=== PATIENT | female | born 1950 | race Caucasian/White ===

== ENCOUNTER 2017-04-23 12:39 | Day surgery (SDC) | payer MEDICARE, OTHER ==
[~2017-04-23] VITALS: Ht 154.9 cm; Wt 74.8 kg
[~2017-04-23 12:39] MED LIST: AMLODIPINE BESYL5 MG PO; ASPIRIN EC81 MG PO; ATENOLOL25 MG PO; ATORVASTATIN CA10 MG PO; CALCIUM + VITA1 EACH PO; GLUCOSAMINE &1 EAC1 PO; IBUPROFEN200 M1 PO; LOSARTAN POTAS100 MG PO; MULTIVITAMINS1 EAC7 PO; NORCO 5-325 TA1 EACH PO; OMEGA 3 1,0001 EACH PO
[2017-04-23] MEDS ORDERED: METOPROLOL SUCC50 MG PO (13:04)
[2017-04-23] MEDS ORDERED: VITAMIN D2000 UNI1 PO (13:05)
[2017-04-23] MEDS ORDERED: CO Q-10300 MG PO (13:06)
[2017-04-23] MEDS ORDERED: FLAXSEED OIL1000 M1 PO (13:06)
[2017-04-23] MEDS ORDERED: FERROUS SU220 MG/52 PO (13:07)
[2017-04-23] MEDS ORDERED: VITAMIN C250 MG PO (13:07)
--- NOTE | 2017-04-23 14:18 | NUR ---
04/23/17 1418 Iwona Ellis ARRIVED IN PACU SLEEPY.
--- NOTE | 2017-04-24 13:23 | OR ---
[facility] [address] [place], [place] [address] Signed DATE OF OPERATION: 04/23/2017 SURGEON: Kacey Winters MD PREOPERATIVE DIAGNOSES: 1. Solid-food dysphagia. No ongoing reflux treatment. 2. Hiatal hernia on upper GI study with irregular distal esophageal mucosa. POSTOPERATIVE DIAGNOSES: 1. Poor esophageal flap valve consistent with hiatal hernia with hypertrophic-appearing distal esophageal mucosa, no evidence of Figueroa's or neoplasm. 2. Pre-pyloric ulcers x2 (8 mm in size). PROCEDURE: Esophagogastroduodenoscopy with biopsy. ANESTHESIA: Intravenous sedation, fentanyl 100 mcg, Versed 3 mg. INDICATION: This is a 67-year-old white woman, who is a patient of MANAV Nuñez; previously Dr. Yves Matta, now retired. She has had several years of increasing dysphagia, now primarily to solid foods. An upper GI has been performed in the past confirming a hiatal hernia as well as some irregular mucosa of the distal esophagus. On the basis of her symptoms, I have recommended upper endoscopy. The patient has declined specific therapy for this including PPI medication until "something is known for sure." She understands the risks of bleeding, infection, and perforation related to upper endoscopy and wished to proceed with it. FINDINGS: Not expected, but nevertheless found were 2 pre-pyloric ulcers. They were with a rose white basin with no sign of active bleeding. Both were about 8 mm in size. Duodenum was normal. The antrum looked reasonably normal otherwise. FABRIZIO test was negative 15 minutes post procedure. Retroflexed view confirmed a poor flap valve consistent with hiatal hernia. Distal esophageal mucosa showed no sign of Figueroa's epithelium and otherwise hypertrophic mucosa on the gastric side of the GE junction Z-line. DESCRIPTION OF PROCEDURE: The patient was brought to the endoscopy suite and placed in lateral decubitus position after undergoing topical Hurricaine spray hypopharyngeal anesthesia. She was given Electronically Signed By: KACEY WINTERS MD 04/24/17 1323 PATIENT NAME: ANA WHEATLEY OPERATIVE REPORT DATE OF : 50 PHYSICIAN: KACEY WINTERS MD REPORT #: [id number] REPORT IS CONFIDENTIAL AND NOT TO BE RELEASED WITHOUT AUTHORIZATION [facility] [address] [place], [place] [address] Signed intravenous sedation to the point of slurred speech and nystagmus with full cardiopulmonary monitoring. A bite block was placed. An Olympus video upper endoscope was passed in the hypopharynx. Hypopharyngeal soft tissue is somewhat edematous, but not severely so. Vocal cords appeared normal, though only briefly encountered. The scope was advanced to the esophagus. Throughout its length, it appeared normal including the distal portion where there was no evidence of Figueroa's epithelium, stricture, or neoplasm. Scope was advanced to the stomach which was insufflated with air. Excess gastric juices suctioned free. There was no sign of bile. Rugal folds were normal as was the antral motility. The antrum appeared reasonably normal, except for the prepyloric area. There were 2 less than 1 cm small ulcers with rose white base. The scope was passed into the normal-appearing pylorus into the duodenum, which was normal and biopsied. The scope was withdrawn and a direct biopsy of the pre-pyloric dominant ulcer was undertaken. There was no untoward bleeding. Biopsies were taken of the antrum for both FABRIZIO and pathologic testing. Retroflexed view was undertaken, confirming a poor flap valve consistent with small hiatal hernia. There was no sign of neoplasm. The scope was straightened, withdrawn, and narrow band imaging was used to evaluate the esophageal mucosa. The distal portion showed a somewhat hypertrophic or hyperplastic area, but not ulcerated and not neoplastic proper. The distal esophageal mucosa was biopsied. The scope was further withdrawn and biopsy was taken of the midesophagus to assess 1st eosinophilic esophagitis. The scope was carefully withdrawn, removed, and the patient was then taken to recovery in good condition. CONCLUDING DIAGNOSES: 1. Dysphagia of uncertain etiology. No obvious stricture, but definitely reflux. 2. Pre-pyloric ulceration unexpected. PLAN: Recommend Prilosec 20 mg p.o. daily, minimum 3 months and short term treatment Carafate 1 g p.o. q.i.d. on empty stomach x2 weeks. She will return to see us in approximately 4 to 6 weeks. MD GABRIELE Leger/MODL /[id number] Electronically Signed By: KACEY WINTERS MD 04/24/17 1323 PATIENT NAME: ANA WHEATLEY OPERATIVE REPORT DATE OF : 50 PHYSICIAN: KACEY WINTERS MD REPORT #: [id number] REPORT IS CONFIDENTIAL AND NOT TO BE RELEASED WITHOUT AUTHORIZATION [address] [address] Signed cc: MD Nell Joaquin PA-C Electronically Signed By: KACEY WINTERS MD 04/24/17 1323 PATIENT NAME: ANA WHEATLEY OPERATIVE REPORT DATE OF : 50 PHYSICIAN: KACEY WINTERS MD REPORT #: [id number] REPORT IS CONFIDENTIAL AND NOT TO BE RELEASED WITHOUT AUTHORIZATION
== END 2017-04-23 15:00 | disposition home or self-care (01) ==
LOC: OPS 12:39 → DS 12:39 → OPS 14:00 → DS 14:00 → OPS 15:00
PROVIDERS: Surgery
PROC: 0DB78ZX Excision of Stomach, Pylorus, Via Natural or Artificial Opening Endoscopic, Diagnostic (ICD-10-PCS; 2017-04-23)
PROC: 0DB68ZX Excision of Stomach, Via Natural or Artificial Opening Endoscopic, Diagnostic (ICD-10-PCS; 2017-04-23)
PROC: 0DB38ZX Excision of Lower Esophagus, Via Natural or Artificial Opening Endoscopic, Diagnostic (ICD-10-PCS; 2017-04-23)
PROC: 0DB98ZX Excision of Duodenum, Via Natural or Artificial Opening Endoscopic, Diagnostic (ICD-10-PCS; principal; 2017-04-23 14:00)
DX: K29.50 Unspecified chronic gastritis without bleeding (principal); K25.7 Chronic gastric ulcer without hemorrhage or perforation; K21.0 Gastro-esophageal reflux disease with esophagitis; I10 Essential (primary) hypertension; Z98.890 Other specified postprocedural states
CPT/HCPCS: 88305; 88342; 99153; G0500; J0690; J2250; J2405; J3010; J7120

== ENCOUNTER 2017-09-10 10:47 | Day surgery (SDC) | payer MEDICARE, OTHER ==
[~2017-09-10] VITALS: Ht 154.9 cm; Wt 76.2 kg
[~2017-09-10 10:47] MED LIST changes: +CO Q-10300 MG PO; +FERROUS SU220 MG/52 PO; +FLAXSEED OIL1000 M1 PO; +METOPROLOL SUCC50 MG PO; +VITAMIN C250 MG PO; +VITAMIN D2000 UNI1 PO
--- NOTE | 2017-09-10 12:35 | NUR ---
09/10/17 Hank5 [place] 1231-PATIENT ARRIVED TO PACU ON 3L NC WEANED TO 2L NC O2 SAT 100% PATIENT AWAKE DROWSY . RR EVEN. ABDOMEN SOFT. ENCOURAGED TO PASS FLATUS. PATIENT REPOSITIONS SELF TO BACK
--- NOTE | 2017-09-10 19:49 | OR ---
[facility] [address] [place], [place] [address] Signed DATE OF OPERATION: 09/10/2017 SURGEON: Kacey Winters MD PREOPERATIVE DIAGNOSES: 1. Persistent diarrhea. 2. Family history of colon cancer (father). 3. History of prepyloric gastric ulcerations. POSTOPERATIVE DIAGNOSES: 1. Healed ulcers of prepyloric antrum, but with persisting superficial erosive changes. 2. Mild inflammatory changes of rectum and sigmoid (primarily edema) with normal ileum and remaining colon. PROCEDURE: 1. Esophagogastroduodenoscopy with biopsy. 2. Total colonoscopy to cecum with biopsy of ileum and colon and rectum. ANESTHESIA: Intravenous sedation with fentanyl 100 mcg, Versed 6 mg. INDICATION: This 67-year-old white woman is a patient of Kwaku Perry. She is known to me from the past having undergone upper endoscopy in April, which showed two prepyloric ulcers. She had no associated H. pylori. She has been under treatment for those and her epigastric pain that she had at that time has resolved. The patient has persisting diarrhea. She has family history of colon cancer in her father. She underwent colonoscopy in 2015, by Dr. Moran with no remarkable findings. Her diarrhea has been going on since May. She has self-referred to a hoop riveter, the visit is still upcoming apparently. She has undergone colonoscopy in 2010, which showed at least one polyp. She is admitted at this time to undergo upper endoscopy to assess for healing of her prepyloric ulcerations as well as colonoscopy to assess for her diarrhea problem. The risks of bleeding, infection, and perforation related to colonoscopy and upper endoscopy were reviewed in detail. She understands and wished to proceed. FINDINGS: On upper endoscopy, there was no sign of persisting prepyloric ulceration, but she did have some superficial erosive changes. The duodenum and stomach and esophagus were otherwise normal. Biopsies were obtained. CLOtest was negative so far. Electronically Signed By: KACEY WINTERS MD 09/10/17 1949 PATIENT NAME: ANA WHEATLEY OPERATIVE REPORT DATE OF : 50 REPORT #: [id number] PHYSICIAN: KACEY WINTERS MD PCP: KWAKU PERRY PAC REPORT IS CONFIDENTIAL AND NOT TO BE RELEASED WITHOUT AUTHORIZATION [facility] [address] [place] [id number] Signed As regard colonoscopy, she had a good prep. Complete colonoscopy was undertaken to the cecum with intubation of the ileum as well. Biopsies were taken throughout. There was an edematous-appearing sigmoid and rectum, but without actual ulcerations per se. DESCRIPTION OF PROCEDURE: The patient was brought to the endoscopy suite and given topical Hurricaine spray hypopharyngeal anesthesia. In the lateral decubitus position, left side down, she was given intravenous sedation to the point of slurred speech and nystagmus. A bite block was placed. Full cardiopulmonary monitoring was maintained. The Olympus video upper endoscope was passed in the hypopharynx. The vocal cords appeared normal. Scope was easily advanced to the esophagus throughout its length, it was normal. Scope was passed in the stomach. Excess gastric juices were suctioned free. Rugal folds appeared normal. The antrum appeared reasonably normal. There was no evidence of prepyloric ulceration, only superficial erythematous erosive changes. The scope was passed through the pylorus into the duodenum, which was normal. Biopsies were taken of the duodenum. The scope was withdrawn to the antrum, where biopsies were taken of the prepyloric antrum. Retroflexed view was undertaken showing the more proximal stomach to be reasonably normal. She did have hiatal hernia. The scope was then withdrawn to the distal esophagus where the mucosa was found to be normal with no evidence of ulceration, neoplasm, varices or Figueroa's epithelium. The biopsies were obtained. The scope was further withdrawn. The remaining esophagus was normal. Plans were then made for colonoscopy. Additional sedation was given. Digital rectal examination performed. An Olympus video colonoscope passed in the rectum. The scope was manipulated throughout the colon, ultimately intubating the cecum itself. The ileocecal valve and appendiceal orifice were easily identified. Mucosa appeared normal. The scope was then manipulated into the terminal ileum, which appeared normal. Biopsies were taken of the ileum to assess for inflammatory bowel disease, though it is unlikely based on gross appearance. The scope was withdrawn to the cecum and biopsies taken there. Careful withdrawal of scope showed normal-appearing mucosa. Transverse colonic biopsies were taken and left-sided biopsies taken in the sigmoid. The sigmoid had a somewhat edematous mucosal appearance with blurring of submucosal vessels suggestive of chronic, but non-ulcerating inflammation. Biopsies were taken of the rectum in a similar way. The scope was then removed and the patient was taken to recovery room in good condition. CONCLUSION DIAGNOSES: No evidence of prepyloric ulceration at this time. Minimal superficial erosive changes noted. Probably best to continue with Prilosec for the time being. Hiatal hernia noted as well. No evidence of esophagitis or Figueroa's epithelium. Electronically Signed By: KACEY WINTERS MD 09/10/171948 PATIENT NAME: ANA WHEATLEY OPERATIVE REPORT DATE OF : 50 REPORT #: [id number] PHYSICIAN: KACEY WINTERS MD PCP: KWAKU PERRY REPORT IS CONFIDENTIAL AND NOT TO BE RELEASED WITHOUT AUTHORIZATION [facility] [address] [place] [address] Signed As regard to diarrhea, colon does not show obvious inflammatory bowel disease. Biopsies of the rectosigmoid and rectum did show mild inflammatory change, but not much and I will not initiate therapy until biopsies have returned. FOLLOWUP PLAN: She is return to see me in approximately a month. MD GABRIELE Leger/GERMAN /[id number] cc: Kwaku Perry PA-C Copies: KWAKU PERRY ~ Electronically Signed By: KACEY WINTERS MD 09/10/17 1949 PATIENT NAME: ANA WHEATLEY OPERATIVE REPORT DATE OF : 50 REPORT #: [id number] PHYSICIAN: KACEY WINTERS MD PCP: KWAKU PERRY REPORT IS CONFIDENTIAL AND NOT TO BE RELEASED WITHOUT AUTHORIZATION
== END 2017-09-10 13:13 | disposition home or self-care (01) ==
LOC: OPS 10:47 → DS 10:47 → OPS 12:00 → DS 13:00 → OPS 13:13
PROVIDERS: Surgery
PROC: 0DBN8ZX Excision of Sigmoid Colon, Via Natural or Artificial Opening Endoscopic, Diagnostic (ICD-10-PCS; 2017-09-10)
PROC: 0DBP8ZX Excision of Rectum, Via Natural or Artificial Opening Endoscopic, Diagnostic (ICD-10-PCS; 2017-09-10)
PROC: 0DB78ZX Excision of Stomach, Pylorus, Via Natural or Artificial Opening Endoscopic, Diagnostic (ICD-10-PCS; 2017-09-10)
PROC: 0DBH8ZX Excision of Cecum, Via Natural or Artificial Opening Endoscopic, Diagnostic (ICD-10-PCS; 2017-09-10)
PROC: 0DBB8ZX Excision of Ileum, Via Natural or Artificial Opening Endoscopic, Diagnostic (ICD-10-PCS; principal; 2017-09-10 12:00)
PROC: 0DBL8ZX Excision of Transverse Colon, Via Natural or Artificial Opening Endoscopic, Diagnostic (ICD-10-PCS; 2017-09-10 12:00)
DX: K62.5 Hemorrhage of anus and rectum (principal); K62.6 Ulcer of anus and rectum; K29.50 Unspecified chronic gastritis without bleeding; K52.9 Noninfective gastroenteritis and colitis, unspecified; K21.0 Gastro-esophageal reflux disease with esophagitis; E66.3 Overweight; Z80.0 Family history of malignant neoplasm of digestive organs; Z98.890 Other specified postprocedural states; Z86.010 Personal history of colon polyps; Z68.31 Body mass index [BMI] 31.0-31.9, adult
CPT/HCPCS: 88305; 99153; G0500; J0690; J2250; J3010; J7120

== ENCOUNTER 2019-02-05 23:01 | Emergency (ER) | payer MEDICARE, OTHER ==
[~2019-02-05] VITALS: Ht 154.9 cm; Wt 79.4 kg
--- OUTSIDE RECORDS SUMMARY | ~2019-02-05 | XMS | Clinical Summary ---
Demographics + + + | Address | [address] | | | [place] [address] | + + + | Home Phone | | + + + | Preferred Language | Unknown | + + + | Marital Status | | + + + | Gnosticism Affiliation | Unknown | + + + | Race | Unknown | + + + | Ethnic Group | Unknown | + + + Author + + + | Author | [facility] | | | and [place] | + + + | Organization | [facility] | | | and [place] | + + + | Address | Unknown | + + + | Phone | Unavailable | + + + Care Team Providers + +------+ + | Care Logistics Planner Name | Role | Phone | + +------+ + PCP | Unavailable | + +------+ + Allergies Not on File Medications Not on file Active Problems Not on file Social History + +-------+ +--------+------+ | Tobacco Use | Types | Packs/Day | Years | Date | | | | | Used | | + +-------+ +--------+------+ | Never Assessed | | | | | + +-------+ +--------+------+ + + + | Sex Assigned at | Date Recorded | | | | + + + | Not on file | | + + + + + + + | Job Start Date | Occupation | Industry | + + + + | Not on file | Not on file | Not on file | + + + + + + + + | Travel History | Travel Start | Travel End | + + + + + + | No recent travel history available. | + + Last Filed Vital Signs Not on file Plan of Treatment + + + + + | Health Maintenance | Due Date | Last Done | Comments | + + + + + | Vaccine: | | | | | Dtap/Tdap/Td (1 - | 9 | | | | Tdap) | | | | + + + + + | Vaccine: Zoster (1 | | | | | of 2) | 0 | | | + + + + + | Breast Cancer | | | | | Screening | 5 | | | + + + + + | Vaccine: | | | | | Pneumococcal 65+ | 5 | | | | Low/Medium Risk (1 | | | | | of 2 - PCV13) | | | | + + + + + | Vaccine: Influenza | | | | | (#1) | 9 | | | + + + + + Results Not on filefrom Last 3 Months"
--- OUTSIDE RECORDS SUMMARY | ~2019-02-05 | XMS | Clinical Summary ---
Demographics + + + | Address | [address] | | | [place] [address] | + + + | Home Phone | | + + + | Preferred Language | Unknown | + + + | Marital Status | | + + + | Sikh Affiliation | Unknown | + + + | Race | Unknown | + + + | Ethnic Group | Unknown | + + + Author + + + | Author | [facility] (Historical as of | | | 11-22-18) | + + + | Organization | [facility] (Historical as of | | | 11-22-18) | + + + | Address | Unknown | + + + | Phone | Unavailable | + + + Support + + +---------+ + | Name | Relationship | Address | Phone | + + +---------+ + | No,Contact | ECON | Unknown | | + + +---------+ + Care Team Providers + +------+ + | Care Parking Station Attendant Name | Role | Phone | + +------+ + PP | Unavailable | + +------+ + Allergies Not on File Current Medications Not on file Active Problems Not [...] on file | | + + + Plan of Treatment + + + + [...] | + + + + + | DEXA SCAN SCREENING | | | | | | 5 | | | + + [...] + Results Not on filefrom Last 3 Months Insurance + +--------+ +------+-------+---------+ | Payer | Benefi | Subscriber | Type | Phone | Address | | | t Plan | ID | | | | | | / | | | | | | | Group | | | | | + +--------+ +------+-------+---------+ | [employer] - | FIRST | [id number] | | | | | [place] | HEALTH | | | | | | | - | | | | | | | PACIFI | | | | | | | [place]OURC | | | | | | | E | | | | | + +--------+ +------+-------+---------+ + +--------+ +--------+ + + | Guarantor Name | Accoun | Relation to | Date | Phone | Billing Address | | | t Type | Patient | of | | | | | | | | | | + +--------+ +--------+ + + | TYRA WHEATLEY | Person | Self | [birth year] | Work: | [address] | | | al/Jose Maria | | 1950 | [phone] | [place] [address] | | | juan jose | | | [phone] Home: | | | | | | | | | | | | | | [phone] | | | | | | | [phone] | | + +--------+ +--------+ + +"
--- OUTSIDE RECORDS SUMMARY | ~2019-02-05 | XMS | Clinical Summary ---
Demographics + + + | Address | [address] | | | [place] [address] | + + + | Home Phone | | + + + | Preferred Language | Unknown | + + + | Marital Status | | + + + | Pentecostalism Affiliation | Unknown | + + + | Race | Unknown | + + + | Ethnic Group | Unknown | + + + Author + + + | Author | [facility] (Historical as of | | | 11-22-18) | + + + | Organization | [facility] (Historical as of | | | 11-22-18) [...] Team Providers + +------+ + | Care Media Aid Name | Role | Phone | + [...] | [employer] - | FIRST | [id number] | | | | | [place] | [...] | Self | [birth year] | Work: | [address] | | | al/Jose Maria | | 1950 | [phone] | [place] [address] | | | juan jose | | | [phone] Home: | | | | | | | | | | | | | | [phone] | | | | | | | [phone] | | + +--------+ +--------+ + +"
--- OUTSIDE RECORDS SUMMARY | ~2019-02-05 | XMS | Clinical Summary ---
Demographics + + + | Address | [address] | | | [place] [address] | + + + | Home Phone | | + + + | Preferred Language | Unknown | + + + | Marital Status | | + + + | Mandaeism Affiliation | Unknown | + + + | Race | Unknown | + + + | Ethnic Group | Unknown | + + + Author + + + | Author | [facility] | | | and [place] | + + + | Organization | [facility] | | | and [place] | + + + | Address | Unknown | + + + | Phone | Unavailable | + + + Care Team Providers + +------+ + | Care Slack Line Yarder Name | Role | Phone | + [...]
--- NOTE | 2019-02-07 06:17 | EKG ---
[facility] [address] [facility] [place] [address] Signed Sinus tachycardia Possible Left atrial enlargement Left axis deviation Abnormal ECG No previous ECGs available Confirmed by NICOLE CAO MD ([id number]) on 02/07/2019 6:17:26 AM Electronically Signed By: NICOLE CAO MD 02/07/19 0617 PATIENT NAME: ANA WHEATLEY Electrocardiogram DATE OF : 50 PHYSICIAN: NICOLE CAO MD REPORT #: [id number] REPORT IS CONFIDENTIAL AND NOT TO BE RELEASED WITHOUT AUTHORIZATION
== END 2019-02-06 00:40 | disposition home or self-care (01) ==
LOC: ED 23:01
DX: R07.2 Precordial pain (principal); I10 Essential (primary) hypertension; Z88.8 Allergy status to other drugs, medicaments and biological substances; Z91.048 Other nonmedicinal substance allergy status; Z79.899 Other long term (current) drug therapy; Z79.82 Long term (current) use of aspirin
CPT/HCPCS: 71045; 80053; 83735; 84484; 85025; 93005; 93010; 99285-25

== ENCOUNTER 2020-07-24 19:34 | Emergency (ER) | payer MEDICARE, OTHER ==
[~2020-07-24] VITALS: Ht 154.9 cm; Wt 81.7 kg
[~2020-07-24 19:34] MED LIST changes: +HYDROXYZINE PAM25 MG PO; +PREDNISONE20 MG PO
== END 2020-07-24 23:05 | disposition home or self-care (01) ==
LOC: ED 19:34
DX: U07.1 COVID-19 (principal); I10 Essential (primary) hypertension; Z88.8 Allergy status to other drugs, medicaments and biological substances; Z88.5 Allergy status to narcotic agent; Z91.048 Other nonmedicinal substance allergy status; Z91.018 Allergy to other foods; Z79.899 Other long term (current) drug therapy; Z79.52 Long term (current) use of systemic steroids; Z79.82 Long term (current) use of aspirin
CPT/HCPCS: 71045; 99284-25; C9803; U0003

== ENCOUNTER 2022-04-20 22:47 | Emergency (ER) | payer MEDICARE, OTHER ==
[~2022-04-20] VITALS: Ht 154.9 cm; Wt 83.9 kg
[2022-04-20] MEDS ORDERED: METOPROLOL SUCC25 MG (23:06)
[2022-04-20] MEDS ORDERED: ATORVASTATIN CA20 MG (23:06)
--- NOTE | 2022-04-22 15:58 | EKG ---
[facility] [address] [facility] [place] [address] Signed Normal sinus rhythm Possible Left atrial enlargement Left axis deviation Minimal voltage criteria for LVH, may be normal variant ( [place] product ) Abnormal ECG When compared with ECG of 05-FEB-2019 23:06, No significant change was found Confirmed by NICOLE CAO MD ([id number]) on 04/22/2022 3:58:46 PM Electronically Signed By: NICOLE CAO MD 04/22/22 1558 PATIENT NAME: DIONILAURAMackenzie RAMIREZ Electrocardiogram DATE OF : 50 PHYSICIAN: NICOLE CAO MD REPORT #: [id number] REPORT IS CONFIDENTIAL AND NOT TO BE RELEASED WITHOUT AUTHORIZATION
== END 2022-04-21 05:14 | disposition home or self-care (01) ==
LOC: ED 22:47
DX: R07.89 Other chest pain (principal); I10 Essential (primary) hypertension; Z88.8 Allergy status to other drugs, medicaments and biological substances; Z88.5 Allergy status to narcotic agent; Z91.048 Other nonmedicinal substance allergy status; Z79.52 Long term (current) use of systemic steroids; Z79.899 Other long term (current) drug therapy; Z79.82 Long term (current) use of aspirin
CPT/HCPCS: 36415; 71045; 71260; 80053; 83880; 84484; 85025; 85379; 85610; 93005; 93010; 99285-25; A9270; Q9967

== ENCOUNTER 2023-07-05 08:20 | Day surgery (SDC) | payer MEDICARE, OTHER ==
[~2023-07-05] VITALS: Ht 154.9 cm; Wt 86.4 kg
[~2023-07-05 08:20] MED LIST changes: +ATORVASTATIN CA20 MG; +CEFAZOLIN SODIUM 2 GM/20 ML SYR IV SCH; +IBLOOD GLUCOSE TEST STRIP 1 EA TEST VI PRN; +LACTATED RINGER'S 1,000 ML IV SCH; +LIDOCAINE HCL 1% 5 ML SDV INJ ONE; +LIDOCAINE HCL 4% 50 ML BTL TOP SCH; +METOPROLOL SUCC25 MG; +MIDAZOLAM HCL 5 MG/5 ML VIAL IV PRN; +fentaNYL citrate 100 MCG/2 ML VIAL IV PRN
[2023-07-05 08:41] VITALS: BP 135/80
[2023-07-05] MEDS ORDERED: MIDAZOLAM HCL 5 MG/5 ML VIAL ONE (09:33)
[2023-07-05] MEDS ORDERED: fentaNYL citrate 100 MCG/2 ML VIAL ONE (09:33)
--- NOTE | 2023-07-05 10:58 | NUR ---
07/05/23 Ade8 Heena Henry 1020- PT PRESENTS TO PACU, SEMI MEDINA POSITION, REACTIVE TO STIMULUS, BUT DOESN'T WAKE UP TO ANSWER QUESTIONS. BREATHING EVEN AND NON LABORED, ON 3L O2 PER NC. LR INFUSING TO RH IV. ABD SOFT, NON DISTENDED. ALL MONITORS IN PLACE. NO SIGNS OF DISTRESS. 1030- PT WAKES AND ANSWERS QUESTIONS. DENIES PAIN AND NAUSEA. ENCOURAGED TO PASS GAS. RE ORIENTED TO TIME AND PLACE AND PLAN OF CARE. PT BACK TO RESTING. 1047- PT SATS REMAIN 99-100% ON 3L PER NC. PT RESTING INTERMITTENTLY, DENIES COMPLAINTS. MOVED TO ROOM AIR AT THIS TIME. 1054- PT SAT UP TO HIGH MEDINA IN BED, TOLERATING WELL. PT GIVEN ICE WATER AT THIS TIME.
[2023-07-05 11:01] VITALS: BP 139/82
--- NOTE | 2023-07-05 16:44 | OR ---
[facility] [address] [place], [place] [address] Signed DATE OF OPERATION: 07/05/2023 SURGEON: Kacey Winters MD PREOPERATIVE DIAGNOSES: 1. History of prepyloric ulcer in 2018 with concurrent epigastric pain. 2. Recent gallbladder ultrasound with gallstones. 3. Colon screening. POSTOPERATIVE DIAGNOSES: 1. Large hiatal hernia without esophagitis. No evidence of recurrent or persistent ulcer. 2. Normal colon to cecum. PROCEDURES: 1. Esophagogastroduodenoscopy with biopsy. 2. Total colonoscopy to cecum. ANESTHESIA: Intravenous sedation; fentanyl 150 mcg and Versed 7 mg total. INDICATION: This 73-year-old white woman is a patient of MANAV Nuñez. She has had complaints of epigastric pain. She takes PPI medication on a daily basis. She was noted to have prepyloric ulceration in 2018. She has no associated dysphagia. She is also noted to have prior history of mild cecitis of the colon on colonoscopy in 2018. She is admitted at this time to undergo surveillance screening colonoscopy as well as upper endoscopy for epigastric pain. Notably, a gallbladder ultrasound was recently performed under my direction, which did confirm gallstones and most likely her epigastric pain symptoms are related to the gallbladder rather than peptic disease and she is on a PPI medication already. FINDINGS: Upper endoscopy showed no evidence of prepyloric ulcer or gastritis. She had a rather large hiatal hernia but no esophagitis at all. CLOtest was negative 30 minutes post procedure. On colonoscopy, the prep was good. Complete colonoscopy was undertaken of the cecum. There was no evidence of polyps, diverticular formation, colitis, or cancer. Electronically Signed By: KACEY WINTERS MD 07/05/23 1644 PATIENT NAME: ANA WHEATLEY OPERATIVE REPORT DATE OF : 50 REPORT #: [id number] PHYSICIAN: KACEY WINTERS MD PCP: NELL PERRY PAC REPORT IS CONFIDENTIAL AND NOT TO BE RELEASED WITHOUT AUTHORIZATION [facility] [address] [place], [place] [address] Signed DESCRIPTION OF PROCEDURE: The patient was brought to the endoscopy suite and placed in the lateral decubitus position, given intravenous sedation to the point of slurred speech and nystagmus. A bite block was placed. An Olympus video upper endoscope was passed into the hypopharynx. Passage was not easily forthcoming and on that basis additional topical lidocaine hypopharyngeal anesthesia was applied. The scope was removed and using a two-hand technique, the esophagus scope was guided into the esophagus without problem. Once in the esophagus, the esophagus was examined and found to be entirely normal. Scope was passed to the stomach, which was insufflated with air. Rugal folds were normal, the antrum was normal, pylorus was normal and passed into the duodenum, showed it to be normal. Biopsies were taken of the duodenum to assess for celiac disease. The scope was withdrawn and biopsies were taken of the antrum for both FABRIZIO and pathologic testing. Retroflexed view was undertaken showing a large hiatal hernia. The scope was withdrawn to the proximal gastric pouch, which showed no sign of collar ulceration. The scope was withdrawn to the distal esophageal mucosa, which was completely normal. There was no Figueroa's epithelium, inflammation or other abnormality. Biopsies were taken nevertheless. The scope was withdrawn and midesophagus appeared normal. The scope was removed. Plans were then made for colonoscopy. Additional sedation was given and digital rectal examination was performed which was normal. An Olympus video colonoscope was passed in the rectum and manipulated throughout the colon ultimately intubating the cecum. Ileocecal valve and appendiceal orifice were normal. Scope was withdrawn from that point and examination showed no sign of polyps, diverticular formation, colitis, or cancer. Retroflexed view of the rectum was normal. Scope was removed and the patient was taken to the recovery room in good condition. CONCLUDING DIAGNOSES: 1. Hiatal hernia without esophagitis. No evidence of recurrent or persistent ulcer. 2. Normal colon. PLAN: She will be seen next week to plan for consideration of cholecystectomy on the basis of symptomatic gallstones, which are manifesting as epigastric pain. Kacey Winters MD Electronically Signed By: KACEY WINTERS MD 07/05/23 1644 PATIENT NAME: ANA WHEATLEY OPERATIVE REPORT DATE OF : 50 REPORT #: [id number] PHYSICIAN: KACEY WINTERS MD PCP: NELL PERRY PAC REPORT IS CONFIDENTIAL AND NOT TO BE RELEASED WITHOUT AUTHORIZATION [facility] [address] [place] [address] [place] [address] Signed /MODL /[id number] cc: Nell Perry PA-C Copies: NELL PERRY ~ Electronically Signed By: KACEY WINTERS MD 07/05/23 1644 PATIENT NAME: ANA WHEATLEY OPERATIVE REPORT DATE OF : 50 REPORT #: [id number] PHYSICIAN: KACEY WINTERS MD PCP: NELL PERRY REPORT IS CONFIDENTIAL AND NOT TO BE RELEASED WITHOUT AUTHORIZATION
--- NOTE | 2023-07-09 14:56 | PATH ---
[facility] [address] [place], [place] [address] Signed SPECIMEN(S): A DUODENAL BIOPSY SPECIMEN(S): B ANTRUM/PYLORUS BIOPSY SPECIMEN(S): C LOWER ESOPHAGEAL BIOPSY SPECIMEN SOURCE: A. DUODENAL BIOPSY B. ANTRUM/PYLORUS BIOPSY C. LOWER ESOPHAGEAL BIOPSY CLINICAL HISTORY: Epigastric pain, hiatal hernia, gastric pain FINAL PATHOLOGIC DIAGNOSIS: A. Duodenal biopsy: - Benign duodenal mucosa, negative for specific diagnostic abnormality. B. Antrum/pylorus biopsy: - Benign gastric-type mucosa with minimal chronic inflammation. - Negative for evidence of Helicobacter organisms on routine HE-stained sections. C. Lower esophageal biopsy: - Benign esophageal mucosa, negative for significantly increased epithelial eosinophils. - Negative for glandular mucosa. JVR:clv MICROSCOPIC EXAMINATION: Histologic sections of all submitted blocks are examined by light microscopy. These findings, together with the gross examination, support the pathologic diagnosis. GROSS DESCRIPTION: A. The specimen, labeled and designated "Hector, duodenal biopsy," is received in formalin and consists of two barber soft tissue fragments, ranging from 0.2-0.3 cm. Entirely submitted in (A1). B. The specimen, labeled and designated "Hector, antrum/pylorus biopsy," is received in formalin and consists of two barber, soft tissue fragments, ranging from 0.4-0.5 cm. Entirely submitted in (B1). C. The specimen, labeled and designated "Hector, lower esophageal biopsy," is received in formalin and consists of one barber, soft tissue fragment, 0.7 cm. Entirely submitted in (C1). VB (under the direct supervision of a pathologist) PATIENT NAME: ANA WHEATLEY PATHOLOGY DATE OF : 50 REPORT #: [id number] PHYSICIAN: FRANCISCO SCHNEIDER PCP: KWAKU ROSARIO PAC REPORT IS CONFIDENTIAL AND NOT TO BE RELEASED WITHOUT AUTHORIZATION [facility] [address] [place], [place] [address] Signed The Gross Description was prepared using a voice recognition system. The report was reviewed for accuracy; however, sound-alike word errors, addition and/or deletions may occur. If there is any question about this report, please contact Client Services. PERFORMING LABORATORY: Technical component was performed by [facility], [address] [place] [address] (CLIA# [id number]). Professional interpretation was performed by [facility] - [facility], [address] [place] [id number] (CLIA#: [id number]). Diagnostician: Mckinley Neal MD Pathologist Electronically Signed 07/09/2023 Copies: ~ PATIENT NAME: ANA WHEATLEY PATHOLOGY DATE OF : 50 REPORT #: [id number] PHYSICIAN: FRANCISCO PATHOLOGY PCP: KWAKU ROSARIO PAC REPORT IS CONFIDENTIAL AND NOT TO BE RELEASED WITHOUT AUTHORIZATION
[2023-07-11] MEDS ORDERED: METAMUCIL0.4 GM PO (06:06)
[2023-07-11] MEDS ORDERED: OXYCODON-ACETA1 EAC2 PO (09:20)
[2023-07-11] MEDS ORDERED: IBUPROFEN600 MG PO (09:20)
[2023-07-11] MEDS ORDERED: ACETAMINOPHEN500 MG PO (09:21)
== END 2023-07-05 11:10 | disposition home or self-care (01) ==
LOC: OPS 08:20 → DS 08:20 → OPS 09:45 → DS 09:45 → OPS 11:10
PROVIDERS: ATTEND Surgery
PROC: 0DB98ZX Excision of Duodenum, Via Natural or Artificial Opening Endoscopic, Diagnostic (ICD-10-PCS; principal; 2023-07-05 09:45)
PROC: 0DJD8ZZ Inspection of Lower Intestinal Tract, Via Natural or Artificial Opening Endoscopic (ICD-10-PCS; 2023-07-05 09:45)
DX: Z12.11 Encounter for screening for malignant neoplasm of colon (principal); R10.13 Epigastric pain; K44.9 Diaphragmatic hernia without obstruction or gangrene; Z80.0 Family history of malignant neoplasm of digestive organs; E66.9 Obesity, unspecified; Z96.611 Presence of right artificial shoulder joint
CPT/HCPCS: 88305; 99153; G0500; J0690; J2250; J3010; J7121

== ENCOUNTER 2024-03-21 19:23 | Emergency (ER) | payer MEDICARE, OTHER ==
[~2024-03-21] VITALS: Ht 154.9 cm; Wt 78.0 kg
[~2024-03-21 19:23] MED LIST changes: +ACETAMINOPHEN500 MG PO; -CEFAZOLIN SODIUM 2 GM/20 ML SYR IV SCH; -IBLOOD GLUCOSE TEST STRIP 1 EA TEST VI PRN; +IBUPROFEN600 MG PO; -LACTATED RINGER'S 1,000 ML IV SCH; -LIDOCAINE HCL 1% 5 ML SDV INJ ONE; -LIDOCAINE HCL 4% 50 ML BTL TOP SCH; +METAMUCIL0.4 GM PO; -MIDAZOLAM HCL 5 MG/5 ML VIAL IV PRN; +OXYCODON-ACETA1 EAC2 PO; -fentaNYL citrate 100 MCG/2 ML VIAL IV PRN
[2024-03-21] MEDS ORDERED: ALBUTEROL/IPRATROPIUM 3 ML NEB INH ONE (20:15)
[2024-03-21 20:30] LABS: INFLUENZA B NAA NEGATIVE (NEGATIVE); RESPIRATORY SYNCYTIAL VIR NAA NEGATIVE (NEGATIVE)
[2024-03-21] MEDS ORDERED: OSELTAMIVIR PHOSPHATE 75 MG HOME.PACK PO ONE (21:00)
[2024-03-21] MEDS ORDERED: ALBUTEROL SULFATE 8 GM HOME.PACK INH ONE (21:00)
[2024-03-21] MEDS ORDERED: INHALER, ASSIST DEVICES 1 EACH SPACER MISC ONE (21:00)
[2024-03-21 21:06] VITALS: BP 142/86
== END 2024-03-21 21:11 | disposition home or self-care (01) ==
LOC: ED 19:23
PROVIDERS: Family Medicine
DX: J10.1 Influenza due to other identified influenza virus with other respiratory manifestations (principal); I10 Essential (primary) hypertension; Z96.611 Presence of right artificial shoulder joint; Z96.651 Presence of right artificial knee joint; Z88.5 Allergy status to narcotic agent; Z88.8 Allergy status to other drugs, medicaments and biological substances; Z91.09 Other allergy status, other than to drugs and biological substances; Z79.899 Other long term (current) drug therapy; Z11.52 Encounter for screening for COVID-19
CPT/HCPCS: 71045; 87502; 94640; 94664; 99285-25; A9270; U0002

== ENCOUNTER 2024-06-09 02:20 | Emergency (ER) | payer MEDICARE, OTHER ==
[~2024-06-09] VITALS: Ht 154.9 cm; Wt 81.2 kg
[2024-06-09 02:42] LABS: BASOPHILS 0.9 % (0-2); EOSINOPHILS 4.4 % (0-6); HEMATOCRIT 38.3 % (35.0-50.0); HEMOGLOBIN 12.5 g/dL (12.0-18.0); LYMPHOCYTES 30.3 % (24-44); MCH 25.6 (27-36); MCHC 32.8 g/dl (30-36); MCV 78.1 fl (81-99); MONOCYTES 10.4 % (0-12); PLATELET COUNT 446 K/uL (140-440); RDW 16.6 (10.5-15.0)
[2024-06-09] MEDS ORDERED: ASPIRIN 81 MG CHEW PO ONE (02:45)
[2024-06-09] MEDS ORDERED: LIDOCAINE & ANTACID 35 ML BTL PO ONE (02:45)
[2024-06-09 03:04] LABS: ALBUMIN 3.7 g/dL (3.4-5.0); ALBUMIN/GLOBULIN RATIO 0.79 (1.1-2.4); ANION GAP 15.7 (7-21); BILIRUBIN, TOTAL 1.2 mg/dL (0.2-1.0); BUN/CREATININE RATIO 25.42 (6.0-28.6); CALCIUM 9.7 mg/dL (8.5-10.1); CREATININE, SERUM 0.59 mg/dL (0.55-1.02); MAGNESIUM 1.8 mg/dL (1.8-2.4); POTASSIUM 3.7 mmol/L (3.5-5.1); PROTEIN, TOTAL 8.4 g/dL (6.4-8.2)
[2024-06-09] MEDS ORDERED: PROTONIX40 MG PO (04:38)
[2024-06-09] MEDS ORDERED: HYDROCODON-ACE1 EA10 PO (04:38)
[2024-06-09] MEDS ORDERED: HYDROCODONE BIT/ACETAMINOPHEN 5/325 MG 1 TAB HOME.PACK PO ONE (05:00)
[2024-06-09 05:03] VITALS: BP 146/77
--- NOTE | 2024-06-10 19:43 | EKG ---
[facility] [address] [facility] [place] [address] Signed Normal sinus rhythm Possible Left atrial enlargement Left axis deviation Abnormal ECG When compared with ECG of 09-JUL-2023 08:29, No significant change was found Confirmed by Bert Lerma MD ([id number]) on 06/10/2024 7:43:26 PM Electronically Signed By: BERT LERMA MD 06/10/241942 PATIENT NAME: ANA WHEATLEY Electrocardiogram DATE OF : 50 PHYSICIAN: BERT LERMA MD REPORT #: [id number] REPORT IS CONFIDENTIAL AND NOT TO BE RELEASED WITHOUT AUTHORIZATION
== END 2024-06-09 05:05 | disposition home or self-care (01) ==
LOC: ED 02:20
PROVIDERS: Family Medicine
DX: R07.89 Other chest pain (principal); K44.9 Diaphragmatic hernia without obstruction or gangrene; I10 Essential (primary) hypertension; Z88.5 Allergy status to narcotic agent; Z88.8 Allergy status to other drugs, medicaments and biological substances; Z91.018 Allergy to other foods; Z91.048 Other nonmedicinal substance allergy status; Z79.899 Other long term (current) drug therapy
CPT/HCPCS: 36415; 71045; 74177; 80053; 83690; 83735; 84484; 85025; 93005; 93010; 99284-25; A9270; Q9967

== ENCOUNTER 2024-06-30 10:43 | Day surgery (SDC) | payer MEDICARE, OTHER ==
[~2024-06-30] VITALS: Ht 154.9 cm; Wt 79.5 kg
[~2024-06-30 10:43] MED LIST changes: +HYDROCODON-ACE1 EA10 PO; +IBLOOD GLUCOSE TEST STRIP 1 EA TEST VI PRN; +LACTATED RINGER'S 1,000 ML IV SCH; +LIDOCAINE HCL 1% 5 ML SDV INJ ONE; +LIDOCAINE HCL 4% 50 ML BTL TOP SCH; +MIDAZOLAM HCL 5 MG/5 ML VIAL IV PRN; +PROTONIX40 MG PO; +fentaNYL citrate 100 MCG/2 ML VIAL IV PRN
[2024-06-30] MEDS ORDERED: CEFAZOLIN SODIUM 2 GM/20 ML SYR IV SCH (11:00)
[2024-06-30 11:01] VITALS: BP 154/81
[2024-06-30] MEDS ORDERED: VITAMIN D350 MCG PO (11:06)
[2024-06-30] MEDS ORDERED: IRON240 MG PO (11:06)
[2024-06-30] MEDS ORDERED: fentaNYL citrate 100 MCG/2 ML VIAL ONE (12:00)
[2024-06-30] MEDS ORDERED: MIDAZOLAM HCL 5 MG/5 ML VIAL ONE (12:01)
--- NOTE | 2024-06-30 12:46 | NUR ---
06/30/24 1246 Blanca Tan OXYGEN SATURATION REMAINS 97% ON 2L VIA NC. OXYGEN IS DISCONTINUED AT THIS TIME.
[2024-06-30 13:09] VITALS: BP 137/95
--- NOTE | 2024-06-30 14:12 | OR ---
[facility] [address] [place], [place] [address] Signed DATE OF OPERATION: 06/30/2024 SURGEON: Kacey Winters MD PREOPERATIVE DIAGNOSIS: Clinical esophageal spasm with severe episode requiring emergency evaluation and hiatal hernia. POSTOPERATIVE DIAGNOSES: 1. Complex hiatal hernia (large) without associated Figueroa's epithelium. 2. Schatzki's ring. PROCEDURE: Esophagogastroduodenoscopy with biopsy. ANESTHESIA: Intravenous sedation fentanyl 100 mcg and Versed 4 mg. INDICATION: A 74-year-old white woman is a patient of MANAV Nuñez. She presented to the emergency room in the first week of June, awakened with severe significant substernal pain. Full evaluation including EKG and cardiac enzymes showed no evidence of cardiac ischemia. Review of the ER note described attribution of her symptoms to gastroesophageal reflux; CT scan performed did show hiatal hernia. She was prescribed Protonix. A moderate size hiatal hernia was noted on the CT scan. She is admitted at this time to undergo upper endoscopy to better characterize the problem particularly the type and extent of hiatal hernia and secondary features that might include Figueroa's epithelium, stricture or neoplasm. She understands the risk of upper endoscopy including but not limited to bleeding, infection, and perforation and wished to proceed. FINDINGS: A relatively large hiatal hernia was noted. It was somewhat complex, but probably not a periesophageal hernia proper. There was no evidence of gastric volvulus. An associated Schatzki's ring of the GE junction was noted. There was no evidence of Figueroa's epithelium. The duodenum and antrum were normal. CLOtest was negative 20 minutes post procedure. DESCRIPTION OF PROCEDURE: The patient was brought to the endoscopy suite and placed in lateral decubitus position given intravenous sedation to the point of slurred speech and nystagmus after undergoing Electronically Signed By: KACEY WINTERS MD 06/30/24 1412 PATIENT NAME: ANA WHEATLEY OPERATIVE REPORT DATE OF : 50 REPORT #: [id number] PHYSICIAN: KACEY WINTERS MD PCP: NELL PERRY PAC REPORT IS CONFIDENTIAL AND NOT TO BE RELEASED WITHOUT AUTHORIZATION [facility] [address] [place], [place] [address] Signed topical lidocaine hypopharyngeal anesthesia. A bite block was placed. An Olympus video upper endoscope was passed in the hypopharynx. The vocal cords were not well visualized. The scope was advanced to the esophagus throughout its length, it looked reasonably normal though there was a Schatzki's ring in the distal portion. There was no sign of Figueroa's epithelium. Scope was advanced into the stomach where a chamber "above" the diaphragm was noted consistent with hiatal hernia. Scope was then passed to the main portion of the stomach, which appeared to be somewhat distorted in its appearance. There was some bile mucoid material in the antrum. Pylorus was normal. Scope was passed through into the duodenum, which was normal. Biopsies were taken of the duodenum to assess for celiac disease. The scope was withdrawn and biopsies then taken of the antrum for both FABRIZIO and pathologic testing. Withdrawal of scope allowed for retroflexed view which showed a large size hiatal hernia at the chamber of stomach above the diaphragmatic compression. Retroflexed view within this area showed a Schatzki's ring. Scope was straightened and withdrawn after biopsies were undertaken for both FABRIZIO and pathologic testing. Scope withdrawn and biopsies taken of the Schatzki's ring itself. It was not neoplastic in appearance in any adverse way. Biopsy was then taken of the [place] esophagus. Further withdrawal showed no other abnormality, specifically no mid esophageal felinization. The scope was removed. The patient was taken to the recovery room in good condition. CONCLUDING DIAGNOSIS: The patient has a somewhat complex hiatal hernia, which no doubt led to reflux symptoms, which appear to be reasonably well controlled with PPI medication at this time. PLAN: We will see her back in the office in mid July. She is due to have video esophagram in the first week of July. MD GABRIELE Leger/KIPL /[id number] cc: Nell Perry PA-C Electronically Signed By: KACEY WINTERS MD 06/30/24 1412 PATIENT NAME: ANA WHEATLEY OPERATIVE REPORT DATE OF : 50 REPORT #: [id number] PHYSICIAN: KACEY WINTERS MD PCP: NELL PERRY PAC REPORT IS CONFIDENTIAL AND NOT TO BE RELEASED WITHOUT AUTHORIZATION [address] [address] Signed Copies: NELL PERRY ~ Electronically Signed By: KACEY WINTERS MD 06/30/24 1412 PATIENT NAME: ANA WHEATLEY OPERATIVE REPORT DATE OF : 50 REPORT #: [id number] PHYSICIAN: KACEY WINTERS MD PCP: NELL PERRY REPORT IS CONFIDENTIAL AND NOT TO BE RELEASED WITHOUT AUTHORIZATION
--- NOTE | 2024-07-03 14:12 | PATH ---
[facility] [address] [place], [place] [address] Signed SPECIMEN(S): A DUODENAL BIOPSY SPECIMEN(S): B ANTRUM BIOPSY SPECIMEN(S): C ESOPHAGEAL BIOPSY SPECIMEN(S): D LOWER ESOPHAGEAL BIOPSY SPECIMEN SOURCE: A. DUODENAL BIOPSY B. ANTRUM BIOPSY C. ESOPHAGEAL BIOPSY D. LOWER ESOPHAGEAL BIOPSY CLINICAL HISTORY: GERD, retrosternal pain FINAL PATHOLOGIC DIAGNOSIS: A. Duodenum, biopsy: - Scant superficial fragments of duodenal epithelium with no significant pathologic changes B. Stomach, antrum, biopsy: - Gastric antral mucosa with no significant pathologic changes - Negative for Helicobacter pylori with HE stains C. Esophagus, biopsy: - Cardia type glandular mucosa with no significant pathologic changes; negative for intestinal metaplasia D. Esophagus, lower, biopsy: - Esophageal squamous mucosa with no significant pathologic changes BRP MICROSCOPIC EXAMINATION: Histologic sections of all submitted blocks are examined by light microscopy. These findings, together with the gross examination, support the pathologic diagnosis. GROSS DESCRIPTION: A. The specimen, labeled and designated "Hector duodenal biopsy," is received in formalin and consists of scant fragments of tissue that is not likely to survive processing. The specimen is sent to cytology for cellblock preparation. B. The specimen, labeled and designated "Hector, antrum biopsy," is received in formalin and consists of one barber soft tissue fragment, 0.4 cm. Entirely submitted in (B1). PATIENT NAME: HECTORKESHIAANABLAIR RAMIREZ PATHOLOGY DATE OF : 50 REPORT #: [id number] PHYSICIAN: [employer] PCP: KWAKU ROSARIO PAC REPORT IS CONFIDENTIAL AND NOT TO BE RELEASED WITHOUT AUTHORIZATION [facility] [address] [place], [place] [address] Signed C. The specimen, labeled and designated "Hector, esophageal biopsy," is received in formalin and consists of one barber soft tissue fragment, 0.2 cm. Entirely submitted in (C1). D. The specimen, labeled and designated "Hector, lower esophageal biopsy," is received in formalin and consists of one barber soft tissue fragment, 0.5 cm. Entirely submitted in (D1). VB (under the direct supervision of a pathologist) The Gross Description was prepared using a voice recognition system. The report was reviewed for accuracy; however, sound-alike word errors, addition and/or deletions may occur. If there is any question about this report, please contact Client Services. ADDITIONAL NOTES: Immunohistochemical and/or in situ hybridization studies if performed in this case included appropriate positive controls that reacted as expected. This test was developed and its performance characteristics determined by [facility]. It has not been cleared or approved by the U.S. Food and Drug Administration. The FDA has determined that such clearance or approval is not necessary. This test is used for clinical purposes. It should not be regarded as investigational or for research. [facility] is certified under the Clinical Laboratory Improvement Amendments of 1988 (CLIA) as qualified to perform high complexity clinical laboratory testing. PERFORMING LABORATORY: Technical component was performed by [facility], [address] [place] [id number] (CLIA# [id number]). Professional interpretation was performed by [facility] - [facility], [address] [place] [id number] (CLIA#: [id number]). Diagnostician: Ky Robertson MD Pathologist Electronically Signed 07/03/2024 Copies: ~ PATIENT NAME: ANA WHEATLEY PATHOLOGY DATE OF : 50 REPORT #: [id number] PHYSICIAN: FRANCISCO SCHNEIDER PCP: KWAUK ROSARIO PAC REPORT IS CONFIDENTIAL AND NOT TO BE RELEASED WITHOUT AUTHORIZATION
== END 2024-06-30 13:17 | disposition home or self-care (01) ==
LOC: OPS 10:43 → DS 10:43 → OPS 11:45 → DS 12:15 → OPS 12:15
PROVIDERS: ATTEND Surgery
PROC: 0DB68ZX Excision of Stomach, Via Natural or Artificial Opening Endoscopic, Diagnostic (ICD-10-PCS; 2024-06-30)
PROC: 0DB98ZX Excision of Duodenum, Via Natural or Artificial Opening Endoscopic, Diagnostic (ICD-10-PCS; principal; 2024-06-30 11:45)
DX: K22.2 Esophageal obstruction (principal); K44.9 Diaphragmatic hernia without obstruction or gangrene; E66.9 Obesity, unspecified; Z68.33 Body mass index [BMI] 33.0-33.9, adult; Z79.899 Other long term (current) drug therapy; Z88.5 Allergy status to narcotic agent; Z88.8 Allergy status to other drugs, medicaments and biological substances; Z90.49 Acquired absence of other specified parts of digestive tract
CPT/HCPCS: 88305; 99153; G0500; J0690; J2250; J3010; J7121

== ENCOUNTER 2025-03-18 08:38 | Day surgery (SDC) | payer MEDICARE, OTHER ==
[2025-03-16 13:25] VITALS: BP 150/87
[~2025-03-18] VITALS: Ht 154.9 cm; Wt 81.8 kg
[~2025-03-18 08:38] MED LIST changes: +CEFAZOLIN SODIUM 2 GM in SODIUM CHLORIDE 0.9% 100 ML IV SCH; +FLONASE ALLERG9.9 ML NAS; +HEParin SOD (PORCINE) 5,000 UNIT/ML SDV SUB-Q SCH; +IRON240 MG PO; -LIDOCAINE HCL 4% 50 ML BTL TOP SCH; -MIDAZOLAM HCL 5 MG/5 ML VIAL IV PRN; +VITAMIN D350 MCG PO; -fentaNYL citrate 100 MCG/2 ML VIAL IV PRN
[2025-03-18 09:17] VITALS: BP 168/78
[2025-03-18] MEDS ORDERED: CO Q-10100 MG PO (09:17)
[2025-03-18] MEDS ORDERED: LIDOCAINE HCL 2% 5 ML SDV ONE (10:49)
[2025-03-18] MEDS ORDERED: fentaNYL citrate 100 MCG/2 ML VIAL ONE (11:21)
[2025-03-18] MEDS ORDERED: SEVOFLURANE 250 ML BTL INH ONE (11:40)
[2025-03-18] MEDS ORDERED: IBUPROFEN600 MG PO (13:08)
[2025-03-18] MEDS ORDERED: ACETAMINOPHEN500 MG PO (13:09)
[2025-03-18] MEDS ORDERED: OXYCODON-ACETA1 EAC2 PO (13:09)
--- NOTE | 2025-03-18 13:11 | NUR ---
03/18/25 1311 Sheets,Deirdre 1259 PT ARRIVED TO PACU ON 6L VIA MASK, PT WAKES AND DENIES CONCERNS. PT REORIENTED TO PACU. VSS. 1302 O2 REMOVED. 1307 HOB INCREASED PER REQUEST. PT REPORT REPORTS 4/10 TOLERABLE PAIN.
[2025-03-18] MEDS ORDERED: fentaNYL citrate 50 MCG/ML SDV ONE (13:12)
[2025-03-18] MEDS ORDERED: OXYCODONE/APAP 7.5/325 TAB PO PRN (13:15)
[2025-03-18] MEDS ORDERED: ACETAMINOPHEN 500 MG TAB PO PRN (13:15)
[2025-03-18] MEDS ORDERED: LACTATED RINGER'S 1,000 ML IV SCH (13:15)
[2025-03-18] MEDS ORDERED: NALOXONE HCL 0.4 MG SYR IV PRN ×2 (13:15)
[2025-03-18] MEDS ORDERED: fentaNYL citrate 50 MCG/ML SDV IV PRN (13:15)
[2025-03-18] MEDS ORDERED: IBLOOD GLUCOSE TEST STRIP 1 EA TEST VI PRN (13:15)
[2025-03-18] MEDS ORDERED: IBUPROFEN 600 MG TAB PO PRN (13:15)
[2025-03-18 13:45] VITALS: BP 161/86
--- NOTE | 2025-03-18 14:18 | NUR ---
1345: PATIENT BACK IN DAY SURGERY ROOM FROM PACU. RATES PAIN 4/10 IN RIGHT AXILLA. RIGHT AXILLA DRESSING INTACT WITH SMALL AMOUNT OF RED DRAINAGE. VS CHECKED. IV SITE WNL. SCDs ON. PATIENT ON 2 L NC. TOLERATING WATER. GIVEN PUDDING. AT BEDSIDE. CALL LIGHT WITHIN REACH.
--- NOTE | 2025-03-18 14:25 | NUR ---
1347: OXYGEN TURNED OFF. PATIENT ON ROOM AIR. 1404: O2 SAT CHECK. O2 SAT 93% ON ROOM AIR. NO NEEDS AT THIS TIME. AT BEDSIDE. CALL LIGHT WITHIN REACH.
[2025-03-18 14:50] VITALS: BP 160/82
--- NOTE | 2025-03-18 16:05 | NUR ---
1500: VS CHECKED. RATES PAIN 3/10. GIVEN 1 TAB OF PERCOCET FOR PAIN IN RIGHT AXILLA. IV SALINE LOCKED. RIGHT AXILLA DRESSING INTACT WITH SMALL AMOUNT OF RED DRAINAGE. PATIENT ASSISTED OOB AND TO BATHROOM. VOID WITHOUT DIFFICULTY. GAIT STEADY TO AND FROM BATHROOM. PATIENT GETTING DRESSED WITH HELP FROM . 1520: DISCHARGE INSTRUCTIONS GIVEN TO PATIENT AND . 1526: IV DC'D WNL. TIP INTACT. DRESSING APPLIED. 1530: PATIENT DISCHARGED TO HOME VIA WHEELCHAIR WITH .
--- NOTE | 2025-03-20 14:08 | OR ---
[facility] [facility] [address] [facility] [place], [place] [address] Signed DATE OF OPERATION: 03/18/2025 SURGEON: Kacey Winters MD PREOPERATIVE DIAGNOSIS: Right axillary adenopathy, 4 cm dominant lymph node. POSTOPERATIVE DIAGNOSIS: Right axillary adenopathy, 4 cm dominant lymph node, probably malignant. PROCEDURE: Right deep axillary lymph node excision, 4 cm. ANESTHESIA: General LMA, Anabella Martínez CRNA. INDICATION: This 75-year-old white woman is a patient of Kwaku Perry. I have been working with her on her reflux problem and saw her in followup this week seeking weight loss, anticipating possible anti-reflux operation. She noted that she had been discovered to have a right axillary lymph node that was rather large, an ultrasound was performed confirming this. A plan for FNA or core biopsy was outlined for the next two weeks. The patient has had no systemic symptoms of night sweats, fever, chills, or weight loss and no family history of lymphoma. Mammogram in July of this year was normal. She has no breast lesion on exam, no skin lesion either. She is admitted at this time to undergo complete axillary lymph node biopsy on the significant possibility this represents malignancy, possibly lymphoma for which architectural elements on a full biopsy are beneficial for characterization. The lesion may be benign it is admitted, but I think unlikely. Possibility of breast cancer or other malignancy is also considered, though clinically it would have to be an occult carcinoma of the breast. There is no skin lesions to suggest metastatic disease from melanoma or other skin malignancy. The patient and her understand the risk of bleeding, infection, cosmetic deformity, arm swelling, need for additional treatment and so forth and wished to proceed. FINDINGS: The lesion was quite firm indeed and quite obviously malignant. It measured 4 cm indeed. Transection of the lesion on the back table showed it to be a yellow firm Electronically Signed By: KACEY WINTERS MD 03/20/25 1408 PATIENT NAME: ANA WHEATLEY OPERATIVE REPORT DATE OF : 50 REPORT #: [id number] PHYSICIAN: KACEY WINTERS MD PCP: KWAKU PERRY PAC REPORT IS CONFIDENTIAL AND NOT TO BE RELEASED WITHOUT AUTHORIZATION [facility] [address] [place], [place] [address] Signed consistency consistent most likely with lymphoma. There was no other dominant axillary adenopathy noted. DESCRIPTION OF PROCEDURE: The patient was brought to the operating room, given a general LMA type anesthetic. Preoperative antibiotic Ancef was given. Sequential compression device stockings used and heparin subcutaneously administered. The right axilla and chest were prepared with a chlorhexidine solution and draped sterilely. Palpation of the lesion showed it to be in the medial superior aspect near the edge of the pectoralis muscle. A transverse incision was made directly over it and dissection was carried through the subcutaneous tissue with electrocautery. With blunt and electrocautery dissection, the lymph node could be palpated and was quite firm indeed. It was quite obviously malignant. Further dissection was undertaken and a few blood vessels nearby were secured with hemostats. The lesion was excised completely and photographs taken. It was bivalved and found to have findings highly consistent with lymphoma, though the final pathology of course is pending. The clamped vessels were secured with 2-0 Vicryl ties. Irrigation was undertaken. Hemostasis additionally secured with electrocautery. This wound was closed in layers with interrupted 2-0 Vicryl and a running subcuticular 3-0 Vicryl for the skin. Steri-Strips were applied as well as an Acticoat dressing. Blood loss was less than 10 mL. Sponge, needle, and instrument counts were reported as correct x3. MD GABRIELE Leger/KIPL /[id number] cc: Kwaku Perry PA-C Copies: KWAKU PERRY ~ Electronically Signed By: KACEY WINTERS MD 03/20/25 1408 PATIENT NAME: ANA WHEATLEY OPERATIVE REPORT DATE OF : 50 REPORT #: [id number] PHYSICIAN: KACEY WINTERS MD PCP: KWAKU PERRY REPORT IS CONFIDENTIAL AND NOT TO BE RELEASED WITHOUT AUTHORIZATION
== END 2025-03-18 15:30 | disposition home or self-care (01) ==
LOC: DS 08:38
PROVIDERS: ATTEND Surgery
PROC: 07B50ZX Excision of Right Axillary Lymphatic, Open Approach, Diagnostic (ICD-10-PCS; principal; 2025-03-18 10:35)
DX: C77.3 Secondary and unspecified malignant neoplasm of axilla and upper limb lymph nodes (principal); C80.1 Malignant (primary) neoplasm, unspecified; K21.00 Gastro-esophageal reflux disease with esophagitis, without bleeding; E66.9 Obesity, unspecified; Z68.34 Body mass index [BMI] 34.0-34.9, adult; Z96.611 Presence of right artificial shoulder joint; Z88.5 Allergy status to narcotic agent; Z88.8 Allergy status to other drugs, medicaments and biological substances; Z87.19 Personal history of other diseases of the digestive system; Z90.49 Acquired absence of other specified parts of digestive tract; Z80.0 Family history of malignant neoplasm of digestive organs
CPT/HCPCS: 01610; J0688; J1644; J2003; J2405; J2704; J3010; J7121